=== PATIENT | female | born 1995 | race Caucasian/White ===

== ENCOUNTER 2024-06-11 19:12 | Inpatient (IN) | payer BC ==
[2024-06-11] MEDS ORDERED: Promethazine HCl 25 MG/ML VIAL IM PRN ×2 (20:17→22:19)
[2024-06-11] MEDS ORDERED: hydrALAZINE 20 MG/ML VIAL SLOW IVP PRN (20:17)
[2024-06-11] MEDS ORDERED: Ondansetron PF 4 MG/2 ML Vial IVP PRN ×2 (20:17→22:19)
[2024-06-11] MEDS ORDERED: Lidocaine 1% (PF) 30 ML VIAL SC PRN (20:17)
[2024-06-11] MEDS ORDERED: Methylergonovine 0.2 MG/ML VIAL IM PRN (20:18)
[2024-06-11] MEDS ORDERED: Tranexamic Acid 1,000 MG/10 ML VIAL IVP PRN (20:18)
[2024-06-11] MEDS ORDERED: fentaNYL 50 mcg/mL 1 mL Vial SLOW IVP PRN (20:18)
[2024-06-11] MEDS ORDERED: Misoprostol 200 MCG TAB PR PRN (20:18)
[2024-06-11] MEDS ORDERED: Carboprost 250 MCG/ML AMP IM PRN (20:18)
[2024-06-11] MEDS ORDERED: Docusate 100 MG CAP PO PRN (20:18)
[2024-06-11] MEDS ORDERED: Acetaminophen 500 MG TAB PO PRN (20:18)
[2024-06-11] MEDS ORDERED: Lactated Ringer's 1,000 ML IV SCH (20:30)
[2024-06-11] MEDS ORDERED: Penicillin G Potassium 5 MILL.UNITS in Sodium Chloride 0.9% 100 ML IVPB SCH (20:30)
[2024-06-11] MEDS ORDERED: Oxytocin 30 units/NS 500 ML 500 ML IV SCH ×2 (20:30)
[2024-06-11] MEDS ORDERED: Misoprostol 100 MCG TAB VAG SCH (20:45)
[2024-06-11 21:00] LABS: Hematocrit 36.2 % (34.9-44.5); Hemoglobin 12.4 g/dL (12.0-15.5); Mean Corpuscular HGB CONC 34.3 g/dL (32.0-36.0); Mean Corpuscular Hemoglobin 27.9 pg (27.0-33.0); Mean Corpuscular Volume 81.3 fL (81.6-98.3); Mean Platelet Volume 11.6 fL (7.4-10.4); Platelet Count 248 10x3/uL (150-450); RBC Distribution Width 13.5 % (11.5-14.5); Red Blood Cell (RBC) Count 4.45 10x6/uL (3.90-5.03)
[2024-06-11 21:33] LABS: Syphilis Antibody Nonreactive (Nonreactive); Syphilis Antibody Index 0.07 S/CO (<1.00 Non-Reactive)
[2024-06-11 21:34] LABS: HBsAg Index 0.13 S/CO (0-0.99); Hep B Surf Ag - L&D Non-Reactive S/CO (NonReactive)
[2024-06-11] MEDS: fentaNYL/Ropivacaine Epidural 100 ML ONE (22:06)
[2024-06-11] MEDS ORDERED: diphenhydrAMINE 50 MG/ML VIAL IVP PRN (22:19)
[2024-06-11] MEDS ORDERED: ePHEDrine Sulfate 50 MG/10 ML VIAL SLOW IVP PRN (22:19)
[2024-06-11] MEDS ORDERED: Lactated Ringer's 500 ML IV PRN (22:19)
[2024-06-11] MEDS ORDERED: Naloxone HCl 0.4 mg/ml Vial IVP PRN ×2 (22:19)
[2024-06-11] MEDS ORDERED: Moisturizing Cream (Eucerin) 113 GM JAR TOP PRN (22:19)
[2024-06-11] MEDS ORDERED: Acetaminophen 325 MG TAB PO PRN (22:19)
[2024-06-11] MEDS ORDERED: Communication Order-Pharmacy FS SCH (22:30)
[2024-06-11] MEDS ORDERED: fentaNYL 2 mcg/Ropivacaine 0.2% Epidural 100 ML CADD EPIDURAL SCH (22:30)
[2024-06-12] MEDS ORDERED: Penicillin G 2.5 MILL.units 2.5 MILL.UNITS in Premix 1 BAG IVPB SCH (00:30)
[2024-06-12 01:06] VITALS: BMI 50.2
[2024-06-12] MEDS ORDERED: Misoprostol 200 MCG TAB VAG PRN (01:07)
[2024-06-12] MEDS ORDERED: hydrALAZINE 20 MG/ML VIAL SLOW IVP PRN (01:07)
[2024-06-12] MEDS ORDERED: Boostrix 0.5 ML (Tdap) VIAL (>/=7 yrs of age) IM ONE (01:07)
[2024-06-12] MEDS ORDERED: Bisacodyl 10 MG SUPP PR PRN (01:07)
[2024-06-12] MEDS ORDERED: Milk Of Magnesia 30 ML UDCUP PO PRN (01:07)
[2024-06-12] MEDS ORDERED: Methylergonovine 0.2 MG/ML VIAL IM PRN (01:07)
[2024-06-12] MEDS ORDERED: Benzocaine-Menthol 82.5 ML CAN TOP PRN (01:07)
[2024-06-12] MEDS ORDERED: Oxytocin 30 units/NS 500 ML 500 ML IV SCH (01:15)
[2024-06-12] MEDS ORDERED: Ondansetron PF 4 MG/2 ML Vial IVP PRN (01:47)
[2024-06-12] MEDS: Ibuprofen 800 MG TAB PO SCH (16:42)
[2024-06-12] MEDS: HYDROcodone/Acetaminophen 5/325 mg Tablet PO PRN (16:53)
[2024-06-12] MEDS: Docusate 100 MG CAP PO SCH (16:54)
[2024-06-12] MEDS: Ferrous Sulfate 325 MG TAB PO SCH (16:56)
[2024-06-12] MEDS: Ondansetron PF 4 MG/2 ML Vial ONE (19:26)
[2024-06-12] MEDS: Witch Hazel 100 PAD JAR TOP SCH (21:36)
[2024-06-13] MEDS: Ibuprofen 800 MG TAB PO SCH (00:34)
[2024-06-13] MEDS: HYDROcodone/Acetaminophen 5/325 mg Tablet PO PRN (19:34)
[2024-06-14] MEDS: Witch Hazel 100 PAD JAR TOP PRN (06:05)
[2024-06-14 09:09] VITALS: BP 131/63; TEMP 98.1
== END 2024-06-14 09:59 | disposition home or self-care (01) | DRG 807 ==
LOC: CSHLD/OP 19:12 → CSHLD 20:24 → CSHPP 06-12 03:04
PROVIDERS: ADMIT Obstetrics & Gynecology; ATTEND Obstetrics & Gynecology
PROC: 10E0XZZ Delivery of Products of Conception, External Approach (ICD-10-PCS; principal; 2024-06-11)
PROC: 0UQGXZZ Repair Vagina, External Approach (ICD-10-PCS; 2024-06-11)
DX: O48.0 Post-term pregnancy (principal); Z37.0 Single live birth; Z3A.40 40 weeks gestation of pregnancy; O99.214 Obesity complicating childbirth; O99.824 Streptococcus B carrier state complicating childbirth; M25.559 Pain in unspecified hip; O90.89 Other complications of the puerperium, not elsewhere classified; O76 Abnormality in fetal heart rate and rhythm complicating labor and delivery
CPT/HCPCS: 36415; 85027; 85461; 86780; 86850; 86900; 86901; 87340; 90384; 96372; 99285